=== PATIENT | female | born 1940 | race Two or more races ===

== ENCOUNTER 2019-05-13 18:52 | Emergency (ER) | payer MEDICARE, OTHER ==
[~2019-05-13] VITALS: Ht 152.4 cm; Wt 68.5 kg
[2019-05-13 18:55] VITALS: BP 198/97
--- NOTE | 2019-05-13 19:36 | NUR ---
PT HERE FOR MEDICATION REFILL, NEW TO AREA AND DENIES ANY MEDICAL COMPLAINTS, STATES NO PRIMARY CARE AT THIS TIME.
[2019-05-13] MEDS ORDERED: AMLODIPINE 5 MG TABLET ONE (20:16)
[2019-05-13] MEDS ORDERED: CARVEDILOL 3.125 MG TABLET ONE (20:16)
--- NOTE | 2019-05-13 20:23 | NUR ---
PT MEDICATED PER ORDERS.
[2019-05-13] MEDS ORDERED: CARVEDILOL 6.25 MG TABLET PO SCH (20:30)
[2019-05-13] MEDS ORDERED: AMLODIPINE 5 MG TABLET PO ONE (20:30)
--- NOTE | 2019-05-13 20:48 | NUR ---
RECHECK 176/86. PA NOTIFIED.
[2019-05-13] MEDS ORDERED: CARVEDILOL 6.25 MG TABLET PO ONE (21:00)
--- NOTE | 2019-05-13 21:00 | NUR ---
Patient/Caregiver given discharge instructions and they have confirmed that they understand the instructions. Patient ambulatory with steady gait.
== END 2019-05-13 21:10 | disposition home or self-care (01) ==
LOC: ED 20:45
DX: I10 Essential (primary) hypertension (principal); E78.5 Hyperlipidemia, unspecified; Z76.0 Encounter for issue of repeat prescription
CPT/HCPCS: 99283